=== PATIENT | female | born 1985 | race African-American/Black ===

== ENCOUNTER 2020-01-08 12:09 | Observation (INO) | payer MEDICAID ==
[~2020-01-08 12:09] MED LIST: PREN-96 PO
[2020-01-08] MEDS ORDERED: FERR-7 PO (13:24)
== END 2020-01-08 13:20 | disposition home or self-care (01) | DRG 566 ==
LOC: LDRP 12:09
PROVIDERS: ADMIT Specialist; ATTEND Specialist
DX: O40.3XX0 Polyhydramnios, third trimester, not applicable or unspecified (principal); Z3A.30 30 weeks gestation of pregnancy
CPT/HCPCS: 59025; 81002; G0378

== ENCOUNTER 2020-01-14 13:34 | Observation (INO) | payer MEDICAID ==
[~2020-01-14 13:34] MED LIST changes: +FERR-7 PO
== END 2020-01-14 14:27 | disposition home or self-care (01) | DRG 566 ==
LOC: LDRP 13:34
PROVIDERS: ADMIT Specialist; ATTEND Specialist
DX: O36.8190 Decreased fetal movements, unspecified trimester, not applicable or unspecified (principal); Z3A.00 Weeks of gestation of pregnancy not specified
CPT/HCPCS: 76818; G0378; 81002

== ENCOUNTER 2020-01-21 13:56 | Observation (INO) | payer MEDICAID ==
[~2020-01-21] VITALS: Ht 154.9 cm; Wt 68.5 kg
[2020-01-21] MEDS ORDERED: TERBUTALINE SULFATE 1 MG/ML 1ML VIAL SC SCH (14:31)
== END 2020-01-21 15:47 | disposition home or self-care (01) | DRG 566 ==
LOC: LDRP 13:56
PROVIDERS: ADMIT Specialist; ATTEND Specialist
DX: O40.3XX0 Polyhydramnios, third trimester, not applicable or unspecified (principal); Z3A.31 31 weeks gestation of pregnancy
CPT/HCPCS: 76818; 81002; 96372; G0378; J3105; 59025

== ENCOUNTER 2020-01-29 20:42 | Observation (INO) | payer MEDICAID ==
[~2020-01-29] VITALS: Ht 157.5 cm; Wt 68.0 kg
== END 2020-01-29 23:09 | disposition home or self-care (01) | DRG 566 ==
LOC: LDRP 20:42
PROVIDERS: ADMIT Specialist; ATTEND Specialist
DX: O40.3XX0 Polyhydramnios, third trimester, not applicable or unspecified (principal); Z3A.33 33 weeks gestation of pregnancy
CPT/HCPCS: 59025; 76818; 81002; G0378; 96365

== ENCOUNTER 2020-02-04 13:59 | Observation (INO) | payer MEDICAID | END 2020-02-04 15:37 | disposition home or self-care (01) | DRG 566 | LOC: LDRP 13:59 | PROVIDERS: ADMIT Obstetrics & Gynecology; ATTEND Obstetrics & Gynecology | DX: O40.3XX0 Polyhydramnios, third trimester, not applicable or unspecified (principal); Z3A.33 33 weeks gestation of pregnancy | CPT/HCPCS: 59025; 76818; 81002; G0378 ==

== ENCOUNTER 2020-02-11 13:13 | Observation (INO) | payer MEDICAID | END 2020-02-11 15:00 | disposition home or self-care (01) | DRG 566 | LOC: LDRP 13:13 | PROVIDERS: ADMIT Obstetrics & Gynecology; ATTEND Obstetrics & Gynecology | DX: O40.3XX0 Polyhydramnios, third trimester, not applicable or unspecified (principal); Z3A.34 34 weeks gestation of pregnancy | CPT/HCPCS: 59025; 76818; 81002; G0378 ==

== ENCOUNTER 2020-02-19 13:15 | Observation (INO) | payer MEDICAID | END 2020-02-19 14:25 | disposition home or self-care (01) | DRG 566 | LOC: LDRP 13:15 | PROVIDERS: ADMIT Obstetrics & Gynecology; ATTEND Obstetrics & Gynecology | DX: O40.3XX0 Polyhydramnios, third trimester, not applicable or unspecified (principal); Z3A.36 36 weeks gestation of pregnancy | CPT/HCPCS: 59025; 81002; G0378 ==

== ENCOUNTER 2020-02-28 12:12 | Observation (INO) | payer MEDICAID ==
[2020-02-28 15:00] LABS: Alcohol, Urine < 3.0 mg/dL (0-10); Amphetamine Screen, Urine NEGATIVE (NEGATIVE); Barbiturate Scree,Urine NEGATIVE (NEGATIVE); Benzodiazephine Screen, Urine NEGATIVE (NEGATIVE); Cannabinoid Screen, Urine NEGATIVE (NEGATIVE); Cocaine Screen, Urine NEGATIVE (NEGATIVE); Opiate Scree,Urine NEGATIVE (NEGATIVE); Phencyclidine Screen, Urine NEGATIVE (NEGATIVE)
== END 2020-02-28 15:45 | disposition home or self-care (01) | DRG 566 ==
LOC: LDRP 12:12
PROVIDERS: ADMIT Obstetrics & Gynecology; ATTEND Obstetrics & Gynecology
DX: O40.3XX0 Polyhydramnios, third trimester, not applicable or unspecified (principal); O62.9 Abnormality of forces of labor, unspecified; Z3A.37 37 weeks gestation of pregnancy
CPT/HCPCS: 59025; 76818; 80307; 81002; G0378